=== PATIENT | female | born 1970 | race Caucasian/White ===

== ENCOUNTER 2020-10-09 09:30 | Outpatient (RCR) | payer MEDICARE, SELFPAY ==
--- NOTE | 2020-06-29 16:28 | P.PNPS_ITS ---
TMS Daily Progress Note Daily TMS Progress Note Week #: 2 Treatment #(10-28): 6 PHQ-9 Pre-Treatment (10-25): 22 PHQ-9 Most Recent (10-25): 20 Reviewed: TMS Tech Note Reviewed Verification: I have reviewed the TMS Handstitching Machine Armhole Feller Note and agree with the contents. The patient remains a candidate to continue TMS treatment per protocol.
--- NOTE | 2020-06-30 22:26 | HO.TMSDAILY2 ---
TMS Daily Progress Note Daily TMS Progress Note Week #: 2 Treatment #(10-28): 7 PHQ-9 Pre-Treatment (10-25): 22 PHQ-9 Most Recent (10-25): 20 Reviewed: TMS Tech Note Reviewed Verification: I have reviewed the TMS Housekeeper Cleaning Cooking Note and agree with the contents. The patient remains a candidate to continue TMS treatment per protocol.
--- NOTE | 2020-06-30 22:29 | HO.TMSDAILY2 ---
TMS Daily Progress Note Daily TMS Progress Note Week #: 2 Treatment #(10-28): 7 PHQ-9 Pre-Treatment (10-25): 22 PHQ-9 Most Recent (10-25): 20 Reviewed: TMS Tech Note Reviewed Verification: I have reviewed the TMS Research Affiliate Note and agree with the contents. The patient remains a candidate to continue TMS treatment per protocol.
--- NOTE | 2020-07-03 22:43 | HO.TMSDAILY2 ---
TMS Daily Progress Note Daily TMS Progress Note Week #: 2 Treatment #(10-28): 8 PHQ-9 Pre-Treatment (10-25): 22 PHQ-9 Most Recent (10-25): 18 JULIAN-7 Pre-Treatment (0-21): 20 JULIAN-7 Most Recent (0-21): 12 CGI-I Most Recent: 0 = Not Assessed Q-LES-Q-SF Most Recent: 36 Reviewed: TMS Tech Note Reviewed Verification: I have reviewed the TMS Forest Biometrics Professor Note and agree with the contents. The patient remains a candidate to continue TMS treatment per protocol.
--- NOTE | 2020-07-04 15:39 | HO.TMSDAILY2 ---
TMS Daily Progress Note Daily TMS Progress Note Week #: 2 Treatment #(10-28): 9 PHQ-9 Pre-Treatment (10-25): 22 PHQ-9 Most Recent (10-25): 18 Reviewed: TMS Tech Note Reviewed Verification: I have reviewed the TMS Ripening Room Attendant Note and agree with the contents. The patient remains a candidate to continue TMS treatment per protocol.
--- NOTE | 2020-07-05 17:15 | P.PNPS_ITS ---
TMS Daily Progress Note Daily TMS Progress Note Week #: 2 Treatment #(10-28): 10 PHQ-9 Pre-Treatment (10-25): 22 PHQ-9 Most Recent (10-25): 18 JULIAN-7 Pre-Treatment (0-21): 20 JULIAN-7 Most Recent (0-21): 12 CGI-I Most Recent: 4 = No Change Q-LES-Q-SF Most Recent: 36 Reviewed: TMS Tech Note Reviewed Verification: I have reviewed the TMS Research Phlebotomist Note and agree with the contents. The patient remains a candidate to continue TMS treatment per protocol.
--- NOTE | 2020-07-06 14:59 | P.PNPS_ITS ---
TMS Daily Progress Note Daily TMS Progress Note Week #: 3 Treatment #(10-28): 11 PHQ-9 Pre-Treatment (10-25): 22 PHQ-9 Most Recent (10-25): 18 JULIAN-7 Pre-Treatment (0-21): 20 JULIAN-7 Most Recent (0-21): 12 CGI-I Most Recent: 4 = No Change Reviewed: TMS Tech Note Reviewed Verification: I have reviewed the TMS Signal Worker Helper Note and agree with the contents. The patient remains a candidate to continue TMS treatment per protocol.
--- NOTE | 2020-07-07 12:55 | HO.TMSDAILY2 ---
TMS Daily Progress Note Daily TMS Progress Note Week #: 3 Treatment #(10-28): 12 PHQ-9 Pre-Treatment (10-25): 22 PHQ-9 Most Recent (10-25): 18 JULIAN-7 Pre-Treatment (0-21): 20 JULIAN-7 Most Recent (0-21): 12 Q-LES-Q-SF Most Recent: 36 Reviewed: TMS Tech Note Reviewed Verification: I have reviewed the TMS Life Science Teacher Note and agree with the contents. The patient remains a candidate to continue TMS treatment per protocol.
--- NOTE | 2020-07-11 21:03 | HO.TMSDAILY2 ---
TMS Daily Progress Note Daily TMS Progress Note Week #: 3 Treatment #(10-28): 12 PHQ-9 Pre-Treatment (10-25): 22 PHQ-9 Most Recent (10-25): 20 Reviewed: TMS Tech Note Reviewed Verification: I have reviewed the TMS International Guest Coordinator Note and agree with the contents. The patient remains a candidate to continue TMS treatment per protocol.
--- NOTE | 2020-07-12 20:22 | P.PNPS_ITS ---
TMS Daily Progress Note Daily TMS Progress Note Week #: 3 Treatment #(10-28): 14 PHQ-9 Pre-Treatment (10-25): 22 PHQ-9 Most Recent (10-25): 20 JULIAN-7 Pre-Treatment (0-21): 20 JULIAN-7 Most Recent (0-21): 8 CGI-I Most Recent: 0 = Not Assessed Q-LES-Q-SF Most Recent: 36 Reviewed: TMS Tech Note Reviewed Verification: I have reviewed the TMS Patient Care Assistant Note and agree with the contents. The patient remains a candidate to continue TMS treatment per protocol.
--- NOTE | 2020-07-13 16:24 | P.PNPS_ITS ---
TMS Daily Progress Note Daily TMS Progress Note Week #: 3 Treatment #(10-28): 15 PHQ-9 Pre-Treatment (10-25): 22 PHQ-9 Most Recent (10-25): 20 JULIAN-7 Pre-Treatment (0-): 20 JULIAN-7 Most Recent (0-): 8 Reviewed: TMS Tech Note Reviewed Verification: I have reviewed the TMS Resident Inspector Note and agree with the contents. The patient remains a candidate to continue TMS treatment per protocol.
--- NOTE | 2020-07-14 18:11 | HO.TMSDAILY2 ---
TMS Daily Progress Note Daily TMS Progress Note Week #: 4 Treatment #(10-28): 16 PHQ-9 Pre-Treatment (-): 22 PHQ-9 Most Recent (10-25): 20 JULIAN-7 Pre-Treatment (0-21): 20 JULIAN-7 Most Recent (0-21): 8 Q-LES-Q-SF Most Recent: 36% Reviewed: TMS Tech Note Reviewed Verification: I have reviewed the TMS Icu Registered Nurse Note and agree with the contents. The patient remains a candidate to continue TMS treatment per protocol.
--- NOTE | 2020-07-17 15:32 | HO.TMSDAILY2 ---
TMS Daily Progress Note Daily TMS Progress Note Week #: 4 Treatment #(10-28): 17 PHQ-9 Pre-Treatment (10-25): 22 PHQ-9 Most Recent (10-25): 16 JULIAN-7 Pre-Treatment (0-): 20 JULIAN-7 Most Recent (0-21): 4 Q-LES-Q-SF Most Recent: 50 Reviewed: TMS Tech Note Reviewed Verification: I have reviewed the TMS Expander Machine Operator Note and agree with the contents. The patient remains a candidate to continue TMS treatment per protocol.
--- NOTE | 2020-07-18 23:06 | HO.TMSDAILY2 ---
TMS Daily Progress Note Daily TMS Progress Note Week #: 4 Treatment #(10-28): 18 PHQ-9 Pre-Treatment (10-25): 22 PHQ-9 Most Recent (10-25): 16 Reviewed: TMS Tech Note Reviewed Verification: I have reviewed the TMS Document Review Specialist Note and agree with the contents. The patient remains a candidate to continue TMS treatment per protocol.
--- NOTE | 2020-07-19 21:55 | HO.TMSDAILY2 ---
TMS Daily Progress Note Daily TMS Progress Note Week #: 4 Treatment #(10-28): 19 PHQ-9 Pre-Treatment (10-25): 22 PHQ-9 Most Recent (10-25): 16 JULIAN-7 Pre-Treatment (0-21): 20 JULIAN-7 Most Recent (0-21): 4 CGI-I Most Recent: 0 = Not Assessed Q-LES-Q-SF Most Recent: 50 Reviewed: TMS Tech Note Reviewed Verification: I have reviewed the TMS Battery Repairer Note and agree with the contents. The patient remains a candidate to continue TMS treatment per protocol.
--- NOTE | 2020-07-21 23:18 | P.PNPS_ITS ---
TMS Daily Progress Note Daily TMS Progress Note Week #: 5 Treatment #(10-28): 20 PHQ-9 Pre-Treatment (-): 22 PHQ-9 Most Recent (10-25): 16 JULIAN-7 Pre-Treatment (0-21): 20 JULIAN-7 Most Recent (0-21): 4 CGI-I Most Recent: 0 = Not Assessed Q-LES-Q-SF Most Recent: 50 Reviewed: TMS Tech Note Reviewed Verification: I have reviewed the TMS Crime Victim Specialist Note and agree with the contents. The patient remains a candidate to continue TMS treatment per protocol.
--- NOTE | 2020-07-25 16:18 | HO.TMSDAILY2 ---
TMS Daily Progress Note Daily TMS Progress Note Week #: 5 Treatment #(10-28): 22 PHQ-9 Pre-Treatment (10-25): 22 PHQ-9 Most Recent (10-25): 16 JULIAN-7 Pre-Treatment (0-21): 20 JULIAN-7 Most Recent (0-21): 4 CGI-I Most Recent: 0 = Not Assessed Q-LES-Q-SF Most Recent: 50 Reviewed: TMS Tech Note Reviewed Verification: I have reviewed the TMS Eyelet Riveter Note and agree with the contents. The patient remains a candidate to continue TMS treatment per protocol.
--- NOTE | 2020-07-26 14:50 | HO.TMSDAILY2 ---
TMS Daily Progress Note Daily TMS Progress Note Week #: 5 Treatment #(10-28): 23 PHQ-9 Pre-Treatment (10-25): 22 PHQ-9 Most Recent (10-25): 16 JULIAN-7 Pre-Treatment (0-21): 20 JULIAN-7 Most Recent (0-21): 3 CGI-I Most Recent: 3 = Minimally Improved Q-LES-Q-SF Most Recent: 50 Reviewed: TMS Tech Note Reviewed Verification: I have reviewed the TMS Trading Assistant Note and agree with the contents. The patient remains a candidate to continue TMS treatment per protocol.
--- NOTE | 2020-07-27 18:04 | P.PNPS_ITS ---
TMS Daily Progress Note Daily TMS Progress Note Week #: 5 Treatment #(10-28): 24 PHQ-9 Pre-Treatment (10-25): 22 PHQ-9 Most Recent (10-25): 16 JULIAN-7 Pre-Treatment (0-21): 20 JULIAN-7 Most Recent (0-21): 3 CGI-I Most Recent: 3 = Minimally Improved Q-LES-Q-SF Most Recent: 50 Reviewed: TMS Tech Note Reviewed Verification: I have reviewed the TMS Analysis Specialist Note and agree with the contents. The patient remains a candidate to continue TMS treatment per protocol.
--- NOTE | 2020-07-28 10:28 | P.PNPS_ITS ---
TMS Daily Progress Note Daily TMS Progress Note Week #: 5 Treatment #(-30): 21 PHQ-9 Pre-Treatment (-): 22 PHQ-9 Most Recent (10-25): 16 JULIAN-7 Pre-Treatment (0-21): 20 JULIAN-7 Most Recent (0-21): 3 CGI-I Most Recent: 3 = Minimally Improved Q-LES-Q-SF Most Recent: 50 Reviewed: TMS Tech Note Reviewed Verification: Late entry for 07/24/20 I have reviewed the TMS Deputy Court Clerk Note and agree with the contents. The patient remains a candidate to continue TMS treatment per protocol.
--- NOTE | 2020-07-28 18:53 | HO.TMSDAILY2 ---
TMS Daily Progress Note Daily TMS Progress Note Week #: 5 Treatment #(10-28): 25 PHQ-9 Pre-Treatment (-): 22 PHQ-9 Most Recent (10-25): 16 JULIAN-7 Pre-Treatment (0-21): 20 JULIAN-7 Most Recent (0-21): 3 CGI-I Most Recent: 3 = Minimally Improved Q-LES-Q-SF Most Recent: 50 Reviewed: TMS Tech Note Reviewed Verification: I have reviewed the TMS Buffing Line Set Up Worker Note and agree with the contents. The patient remains a candidate to continue TMS treatment per protocol.
--- NOTE | 2020-07-31 19:15 | HO.TMSDAILY2 ---
TMS Daily Progress Note Daily TMS Progress Note Week #: 6 Treatment #(10-28): 26 PHQ-9 Pre-Treatment (-): 22 PHQ-9 Most Recent (10-25): 14 JULIAN-7 Pre-Treatment (0-21): 20 JULIAN-7 Most Recent (0-21): 1 CGI-I Most Recent: 3 = Minimally Improved Q-LES-Q-SF Most Recent: 50 Reviewed: TMS Tech Note Reviewed Verification: I have reviewed the TMS Coremaker Floor Note and agree with the contents. The patient remains a candidate to continue TMS treatment per protocol.
--- NOTE | 2020-08-01 16:43 | HO.TMSDAILY2 ---
TMS Daily Progress Note Daily TMS Progress Note Week #: 6 Treatment #(10-28): 27 PHQ-9 Pre-Treatment (-): 22 PHQ-9 Most Recent (10-25): 14 JULINA-7 Pre-Treatment (0-21): 20 JULIAN-7 Most Recent (0-21): 1 CGI-I Most Recent: 3 = Minimally Improved Q-LES-Q-SF Most Recent: 50 Reviewed: TMS Tech Note Reviewed Verification: I have reviewed the TMS Spanish Literature Professor Note and agree with the contents. The patient remains a candidate to continue TMS treatment per protocol.
--- NOTE | 2020-08-02 09:22 | P.PNPS_ITS ---
TMS Daily Progress Note Daily TMS Progress Note Week #: 6 Treatment #(10-28): 28 PHQ-9 Pre-Treatment (-): 22 PHQ-9 Most Recent (10-25): 14 JULIAN-7 Pre-Treatment (0-21): 20 JULIAN-7 Most Recent (0-21): 1 CGI-I Most Recent: 3 = Minimally Improved Q-LES-Q-SF Most Recent: 50 Reviewed: TMS Tech Note Reviewed Verification: I have reviewed the TMS Military Equipment Specialist Note and agree with the contents. The patient remains a candidate to continue TMS treatment per protocol.
--- NOTE | 2020-08-03 15:34 | P.PNPS_ITS ---
TMS Daily Progress Note Daily TMS Progress Note Week #: 6 Treatment #(10-28): 29 PHQ-9 Pre-Treatment (-): 22 PHQ-9 Most Recent (10-25): 14 JULIAN-7 Pre-Treatment (0-21): 20 JULIAN-7 Most Recent (0-21): 1 CGI-I Most Recent: 3 = Minimally Improved Q-LES-Q-SF Most Recent: 50 Reviewed: TMS Tech Note Reviewed Verification: I have reviewed the TMS Manager Division Note and agree with the contents. The patient remains a candidate to continue TMS treatment per protocol.
--- NOTE | 2020-08-04 14:24 | P.PNPS_ITS ---
TMS Daily Progress Note Daily TMS Progress Note Week #: 6 Treatment #(-): 30 PHQ-9 Pre-Treatment (-): 22 PHQ-9 Most Recent (10-25): 14 JULIAN-7 Pre-Treatment (0-21): 20 JULIAN-7 Most Recent (0-21): 1 CGI-I Most Recent: 3 = Minimally Improved Q-LES-Q-SF Most Recent: 50 Reviewed: TMS Tech Note Reviewed Verification: I have reviewed the TMS Grinder Set Up Operator Surface Note and agree with the contents. The patient remains a candidate to continue TMS treatment per protocol.
--- NOTE | 2020-08-07 14:35 | P.PNPS_ITS ---
TMS Daily Progress Note Daily TMS Progress Note Week #: 7 Treatment #(-30): 31 PHQ-9 Pre-Treatment (10-25): 22 PHQ-9 Most Recent (10-25): 12 JULIAN-7 Pre-Treatment (0-21): 20 JULIAN-7 Most Recent (0-21): 2 CGI-I Most Recent: 2 = Much Improved Q-LES-Q-SF Most Recent: 50 Reviewed: TMS Tech Note Reviewed Verification: I have reviewed the TMS Water Technician Note and agree with the contents. The patient remains a candidate to continue TMS treatment per protocol.
--- NOTE | 2020-08-08 21:58 | HO.TMSDAILY2 ---
TMS Daily Progress Note Daily TMS Progress Note Week #: 7 Treatment #(10-28): 32 PHQ-9 Pre-Treatment (10-25): 22 PHQ-9 Most Recent (10-25): 12 JULIAN-7 Pre-Treatment (0-21): 20 JULIAN-7 Most Recent (0-21): 2 CGI-I Most Recent: 2 = Much Improved Q-LES-Q-SF Most Recent: 50 Reviewed: TMS Tech Note Reviewed Verification: I have reviewed the TMS Sports Anchor Note and agree with the contents. The patient remains a candidate to continue TMS treatment per protocol.
--- NOTE | 2020-08-09 19:13 | HO.TMSDAILY2 ---
TMS Daily Progress Note Daily TMS Progress Note Week #: 7 Treatment #(10-28): 33 PHQ-9 Pre-Treatment (10-25): 20 PHQ-9 Most Recent (10-25): 12 JULIAN-7 Pre-Treatment (0-21): 20 JULIAN-7 Most Recent (0-21): 2 CGI-I Most Recent: 2 = Much Improved Q-LES-Q-SF Most Recent: 50 Reviewed: TMS Tech Note Reviewed Verification: I have reviewed the TMS High School Physical Education Teacher Note and agree with the contents. The patient remains a candidate to continue TMS treatment per protocol.
--- NOTE | 2020-08-10 13:45 | P.PNPS_ITS ---
TMS Daily Progress Note Daily TMS Progress Note Week #: 8 Treatment #(10-28): 34 PHQ-9 Pre-Treatment (10-25): 20 PHQ-9 Most Recent (10-25): 12 JULIAN-7 Pre-Treatment (0-21): 20 JULIAN-7 Most Recent (0-21): 2 CGI-I Most Recent: 2 = Much Improved Q-LES-Q-SF Most Recent: 50 Reviewed: TMS Tech Note Reviewed Verification: I have reviewed the TMS Accounting Recruiter Note and agree with the contents. The patient remains a candidate to continue TMS treatment per protocol.
--- NOTE | 2020-08-11 23:12 | HO.TMSDAILY2 ---
TMS Daily Progress Note Daily TMS Progress Note Week #: 8 Treatment #(10-28): 35 PHQ-9 Pre-Treatment (10-25): 20 PHQ-9 Most Recent (10-25): 12 JULIAN-7 Pre-Treatment (0-21): 20 JULIAN-7 Most Recent (0-21): 2 CGI-I Most Recent: 2 = Much Improved Q-LES-Q-SF Most Recent: 50 Reviewed: TMS Tech Note Reviewed Verification: I have reviewed the TMS Casting Room Operator Note and agree with the contents. The patient remains a candidate to continue TMS treatment per protocol.
--- NOTE | 2020-08-14 16:00 | HO.TMSDCTER ---
TMS Discharge-Termination Chart Review Treatments Completed: 36 Initial MT%: 85% Final MT%: 120% Was Remapping Required: No Clinical Evaluation/Review PHQ-9 Pre-Treatment (1-): 20 PHQ-9 Post-Treatment (-): 10 JULIAN-7 Pre-Treatment (0-21): 20 JULIAN-7 Most Recent (0-21): 0 CGI-I Initial: 4 = No Change CGI-I Post Treatment: 1 = Very Much Improved Q-LES-Q-SF Pre-Treatment: 36 Q-LES-Q-SF Post-Treatment: 75 Adverse Effects Local Pain/Discomfort: No Headache: No Facial Pain: No Seizure: No Impression Impression: Marked improvement in both anxiety and depression. also confirms. Will try for M-TMS Recommendations TMS: Maintenance (Will apply) Medication Changes: per Dr Arroyo Follow-up w/ Prescriber: Dr Arroyo
--- NOTE | 2020-08-14 19:34 | HO.TMSDAILY2 ---
TMS Daily Progress Note Daily TMS Progress Note Week #: 8 Treatment #(10-28): 36 PHQ-9 Pre-Treatment (10-25): 20 PHQ-9 Most Recent (10-25): 10 JULIAN-7 Pre-Treatment (0-21): 20 JULIAN-7 Most Recent (0-): 0 CGI-I Most Recent: 2 = Much Improved Q-LES-Q-SF Most Recent: 75 Reviewed: TMS Tech Note Reviewed Verification: I have reviewed the TMS Case Finishing Machine Adjuster Note and agree with the contents. The patient remains a candidate to continue TMS treatment per protocol.
--- NOTE | 2020-08-28 17:40 | P.PNPS_ITS ---
TMS Daily Progress Note Daily TMS Progress Note Date of Service: 08/28/20 Week #: 9 Treatment #(10-28): 37 PHQ-9 Pre-Treatment (-): 20 PHQ-9 Most Recent (10-25): 10 JULIAN-7 Pre-Treatment (0-21): 20 JULIAN-7 Most Recent (0-21): 0 CGI-I Most Recent: 2 = Much Improved Q-LES-Q-SF Most Recent: 75 Reviewed: TMS Tech Note Reviewed Verification: I have reviewed the TMS Body Trimmer Upholsterer Note and agree with the contents. The patient remains a candidate to continue TMS treatment per protocol.
--- NOTE | 2020-08-31 16:46 | HO.TMSDAILY2 ---
TMS Daily Progress Note Daily TMS Progress Note Date of Service: 08/31/20 Week #: 9 Treatment #(10-28): 38 PHQ-9 Pre-Treatment (-): 20 PHQ-9 Most Recent (10-25): 10 JULIAN-7 Pre-Treatment (0-21): 20 JULIAN-7 Most Recent (0-21): 0 CGI-I Most Recent: 1 = Very Much Improved Q-LES-Q-SF Most Recent: 75 Reviewed: TMS Tech Note Reviewed Verification: I have reviewed the TMS Landscape Photographer Note and agree with the contents. The patient remains a candidate to continue TMS treatment per protocol.
--- NOTE | 2020-09-04 18:57 | HO.TMSDAILY2 ---
TMS Daily Progress Note Daily TMS Progress Note Date of Service: 09/04/20 Week #: 9 Treatment #(10-28): 39 PHQ-9 Pre-Treatment (1-): 20 PHQ-9 Most Recent (10-25): 10 JULIAN-7 Pre-Treatment (0-21): 20 JULIAN-7 Most Recent (0-21): 0 CGI-I Most Recent: 1 = Very Much Improved Q-LES-Q-SF Most Recent: 75 Reviewed: TMS Tech Note Reviewed Verification: I have reviewed the TMS Surgery Nurse Note and agree with the contents. The patient remains a candidate to continue TMS treatment per protocol.
--- NOTE | 2020-09-08 10:33 | HO.TMSDAILY2 ---
TMS Daily Progress Note Daily TMS Progress Note Date of Service: 09/08/20 Week #: 9 Treatment #(-): 40 PHQ-9 Pre-Treatment (1-): 20 PHQ-9 Most Recent (10-25): 10 JULIAN-7 Pre-Treatment (0-21): 20 JULIAN-7 Most Recent (0-21): 0 CGI-I Most Recent: 1 = Very Much Improved Q-LES-Q-SF Most Recent: 75 Reviewed: TMS Tech Note Reviewed (Late entry for 09/07/20) Verification: I have reviewed the TMS Children'S Zoo Caretaker Note and agree with the contents. The patient remains a candidate to continue TMS treatment per protocol.
--- NOTE | 2020-09-13 15:38 | P.PNPS_ITS ---
TMS Daily Progress Note Daily TMS Progress Note Date of Service: 09/13/20 Week #: 10 Treatment #(-): 42 PHQ-9 Pre-Treatment (-): 20 PHQ-9 Most Recent (10-25): 9 JULIAN-7 Pre-Treatment (0-21): 20 JULIAN-7 Most Recent (0-21): 2 CGI-I Most Recent: 1 = Very Much Improved Q-LES-Q-SF Most Recent: 75 Reviewed: TMS Tech Note Reviewed Verification: I have reviewed the TMS Economics Department Chair Note and agree with the ronald nts. The patient remains a candidate to continue TMS treatment per protocol.
--- NOTE | 2020-09-15 18:17 | P.PNPS_ITS ---
TMS Daily Progress Note Daily TMS Progress Note Date of Service: 09/15/20 Week #: 10 Treatment #(-): 43 PHQ-9 Pre-Treatment (-): 20 PHQ-9 Most Recent (10-25): 9 JULIAN-7 Pre-Treatment (0-21): 20 JULIAN-7 Most Recent (0-21): 2 CGI-I Most Recent: 1 = Very Much Improved Q-LES-Q-SF Most Recent: 75 Reviewed: TMS Tech Note Reviewed Verification: I have reviewed the TMS Instrument Repair Technician Note and agree with the ronald nts. The patient remains a candidate to continue TMS treatment per protocol.
--- NOTE | 2020-09-18 17:49 | P.PNPS_ITS ---
TMS Daily Progress Note Daily TMS Progress Note Date of Service: 09/19/20 Week #: 10 Treatment #(-): 43 PHQ-9 Pre-Treatment (-): 20 PHQ-9 Most Recent (10-25): 9 JULIAN-7 Pre-Treatment (0-21): 20 JULIAN-7 Most Recent (0-21): 2 CGI-I Most Recent: 1 = Very Much Improved Q-LES-Q-SF Most Recent: 75 Reviewed: TMS Tech Note Reviewed Verification: I have reviewed the TMS Admissions Director Note and agree with the ronald nts. The patient remains a candidate to continue TMS treatment per protocol.
--- NOTE | 2020-09-27 23:09 | P.PNPS_ITS ---
TMS Daily Progress Note Daily TMS Progress Note Date of Service: 09/28/20 Week #: 10 (11) Treatment #(-): 47 PHQ-9 Pre-Treatment (1-): 20 PHQ-9 Most Recent (10-25): 9 JULIAN-7 Pre-Treatment (0-21): 20 JULIAN-7 Most Recent (0-21): 2 CGI-I Most Recent: 1 = Very Much Improved Q-LES-Q-SF Most Recent: 75 Reviewed: TMS Tech Note Reviewed Verification: I have reviewed the TMS Coal Handling Supervisor Note and agree with the contents. The patient remains a candidate to continue TMS treatment per protocol.
--- NOTE | 2020-10-02 23:50 | HO.TMSDAILY2 ---
TMS Daily Progress Note Daily TMS Progress Note Date of Service: 10/02/20 Week #: 10 (11) Treatment #(10-28): 48 PHQ-9 Pre-Treatment (-): 20 PHQ-9 Most Recent (10-25): 9 JULIAN-7 Pre-Treatment (0-): 20 JULIAN-7 Most Recent (0-): 2 CGI-I Most Recent: 1 = Very Much Improved Q-LES-Q-SF Most Recent: 75 Reviewed: TMS Tech Note Reviewed Verification: I have reviewed the TMS Air Pollution Engineer Note and agree with the contents. The patient remains a candidate to continue TMS treatment per protocol.
--- NOTE | 2020-10-04 23:25 | P.PNPS_ITS ---
TMS Daily Progress Note Daily TMS Progress Note Date of Service: 10/04/20 Week #: 10 (11) Treatment #(10-28): 49 PHQ-9 Pre-Treatment (-): 20 PHQ-9 Most Recent (10-25): 9 JULIAN-7 Pre-Treatment (0-21): 20 JULIAN-7 Most Recent (0-): 2 CGI-I Most Recent: 1 = Very Much Improved Q-LES-Q-SF Most Recent: 75 Reviewed: TMS Tech Note Reviewed Verification: I have reviewed the TMS Front Office Specialist Note and agree with the contents. The patient remains a candidate to continue TMS treatment per protocol.
--- NOTE | 2020-10-06 09:20 | P.PNPS_ITS ---
TMS Daily Progress Note Daily TMS Progress Note Date of Service: 10/06/20 Week #: 10 (11) Treatment #(10-28): 50 PHQ-9 Pre-Treatment (-): 20 PHQ-9 Most Recent (10-25): 9 JULIAN-7 Pre-Treatment (0-21): 20 JULIAN-7 Most Recent (0-): 2 CGI-I Most Recent: 1 = Very Much Improved Q-LES-Q-SF Most Recent: 75 Reviewed: TMS Tech Note Reviewed Verification: I have reviewed the TMS Firmware Manager Note and agree with the contents. The patient remains a candidate to continue TMS treatment per protocol.
--- NOTE | 2020-10-09 22:17 | HO.TMSDAILY2 ---
TMS Daily Progress Note Daily TMS Progress Note Date of Service: 10/09/20 Week #: 10 (11) Treatment #(10-28): 51 PHQ-9 Pre-Treatment (-): 20 PHQ-9 Most Recent (10-25): 9 JULIAN-7 Pre-Treatment (0-): 20 JULIAN-7 Most Recent (0-): 2 CGI-I Most Recent: 1 = Very Much Improved Q-LES-Q-SF Most Recent: 75 Reviewed: TMS Tech Note Reviewed Verification: I have reviewed the TMS Business Continuity Director Note and agree with the contents. The patient remains a candidate to continue TMS treatment per protocol.
== END 2020-10-09 09:59 | disposition home or self-care (01) ==
LOC: HO.PTMS 09:30
PROVIDERS: Visit Provider Psychiatry & Neurology Psychiatry
DX: F33.2 Major depressive disorder, recurrent severe without psychotic features (principal)
CPT/HCPCS: 90868